=== PATIENT | male | born 1945 | race Caucasian/White ===

== ENCOUNTER 2016-06-30 05:49 | Outpatient (CLI) | payer MEDICARE ==
[~2016-06-30] VITALS: Ht 185.4 cm; Wt 92.7 kg
[~2016-06-30 05:49] MED LIST: ACHD5005 PO; ASP325TEC PO; EPIN0.3P3 IM; HYDR-3456 PO; METH500T7 PO; PRD10T PO; Polyethylene Glycol PO
== END 2016-06-30 10:47 ==
LOC: PREOP 05:49
PROVIDERS: ATTEND Surgery Pediatric Surgery
DX: Z01.818 Encounter for other preprocedural examination (principal); Z12.11 Encounter for screening for malignant neoplasm of colon; Z86.010 Personal history of colon polyps

== ENCOUNTER 2016-07-02 11:00 | Day surgery (SDC) | payer MEDICARE ==
[~2016-07-02] VITALS: Ht 185.4 cm; Wt 92.7 kg
[2016-07-02 11:15] VITALS: BP 141/83
[2016-07-02] MEDS ORDERED: NS IV 500 ML 500 ML IV ONE (11:15)
[2016-07-02] MEDS ORDERED: NALOXONE 0.4 MG/ML 1 ML (NARCAN) VIAL IVP PRN (11:15)
[2016-07-02] MEDS ORDERED: FLUMAZENIL (ROMAZICON) 0.1 MG/ML 5 ML VIAL INJ PRN (11:15)
[2016-07-02] MEDS ORDERED: MIDAZOLAM 2 MG/2 ML (VERSED) VIAL ONE ×4 (11:24)
[2016-07-02] MEDS ORDERED: fentaNYL INJECTION 100 MCG/2 ML AMP ONE ×2 (11:24→11:25)
[2016-07-02] MEDS ORDERED: OMEP20TA33 PO (11:24)
[2016-07-02] MEDS ORDERED: HURRICAINE EXT TUBE (BENZOCAINE) ONE (11:25)
[2016-07-02] MEDS ORDERED: LIDOCAINE JELLY 2% (XYLOCAINE) 5 ML TUBE ONE (11:25)
--- NOTE | 2016-07-02 11:29 | Conscious Sedation/ASA ---
Conscious Sedation Pre-Proced Time Reviewed: 11:15 ASA Class: 2 Airway Mallampati Classification: (hoh appropriate class) I. II. III, IV Lungs Heart ASA score ASA 1: a normal healthy patient ASA 2: a patient with a mild systemic disease (mid diabetes, controlled hypertension, obesity ASA 3: a patient with a severe systemic disease that limits activity (angina , COPD, prior Myocardial infarction) ASA 4: a patient with an incapacitating disease that is a constant threat to life (CHF, renal failure) ASA 5: a moribund patient not expected to survive 24 hrs. (ruptured aneurysm) ASA 6: a declared brain patient whose organs are being harvested. For emergent operations, add the letter E after the classification Grade 2 Sedation Plan: Analgesia, Amnesia, Plan communicated to team members, Discussed options with patient/fam, Discussed risks with patient/fam Note The patient is an appropriate candidate to undergo the planned procedure, sedation, and anesthesia. The patient immediately re-assessed prior to indication. GABE YANES MD Jul 02, 2016 11:29 am
[2016-07-02] MEDS ORDERED: ONDANSETRON 4 MG/2 ML (SDV) Z0FRAN IV PRN (11:30)
[2016-07-02] MEDS ORDERED: HYDROcodone/APAP 5 MG/325 MG (LORTAB) TAB PO PRN (11:30)
[2016-07-02] MEDS ORDERED: ACETAMINOPHEN 325 MG TABLET/CAPLET (TYLENOL) PO PRN (11:30)
[2016-07-02] MEDS ORDERED: morphine INJ 10 MG/ML 1ML (SYR OR VIAL) IV PRN (11:30)
--- NOTE | 2016-07-02 11:30 | Progress Note-Pre Operative ---
Pre-Operative Progress Note H&P Reviewed The H&P was reviewed, patient examined and no changes noted. Date H&P Reviewed: Jul 02, 2016 Time H&P Reviewed: 11:15 Pre-Operative Diagnosis: GERD, hx colon polyp GABE YANES MD Jul 02, 2016 11:29 am
[2016-07-02] MEDS: fentaNYL INJECTION 100 MCG/2 ML AMP IVP PRN ×4 (11:35→12:07)
[2016-07-02] MEDS: MIDAZOLAM 2 MG/2 ML (VERSED) VIAL IVP PRN ×4 (11:37→12:05)
--- NOTE | 2016-07-02 12:31 | Progress Note-Post Operative ---
Post-Operative Progess Note Pre-Operative Diagnosis GERD, hx colon polyp Post-Operative Diagnosis reflux esophagitis(class B), small HH(1.5cm), mild gastritis. chronic stage 2-3 ext and int hemorrhoids, mild sigmoid diverticulosis. Post-Op Procedure Note Date of Procedure: Jul 02, 2016 Name of Procedure: EGD with bx. Colonoscopy. Anesthesia Type CS Estimated blood loss (mL): minimal Specimen(s) collected GE jxn, antrum GABE YANES MD Jul 02, 2016 12:31 pm
[2016-07-02] MEDS ORDERED: PANT40TA2 PO (12:32)
--- NOTE | 2016-07-02 12:33 | Discharge Inst-Surgical ---
D/C Lap Instructions-KIDO New, Converted, or Re-Newed RX: RX on Chart Follow Up PRN Activity as tolerated High Fiber Diet 25g or more per day Avoid Alcohol, Caffeine, Spicy Landa and Acid foods. Drink 64 fluid oz or more of fluids per day. Symptoms to Report: Fever over 101 degree F, Nausea/Vomiting If any problems/questions: Contact your physician or go to Emergency Room GABE YANES MD Jul 02, 2016 12:33 pm
[2016-07-02 12:35] VITALS: BP 114/64
[2016-07-02 13:00] VITALS: BP 110/78
[2016-07-02 13:05] VITALS: BP 110/78
[2016-07-02] MEDS ORDERED: LIDOCAINE JELLY 2% (XYLOCAINE) 5 ML TUBE TOP ONE (14:00)
[2016-07-02] MEDS ORDERED: HURRICAINE EXT TUBE (BENZOCAINE) XX ONE (14:00)
--- NOTE | 2016-07-05 10:37 | PROCEDURE REPORT ---
PROCEDURE PHYSICIAN: GABE ORLANDO DATE OF PROCEDURE: 07/02/2016 ATTENDING PRIMARY CARE PHYSICIAN: Dr. Santana. PREOPERATIVE DIAGNOSIS: 1. Gastroesophageal reflux disease. 2. History of colon polyp. POSTOPERATIVE DIAGNOSES: 1. Reflux esophagitis, class B. 2. Small hiatal hernia, approximately 1.5 cm in size. 3. Moderate gastritis. 4. Chronic between stage II and III external and internal hemorrhoids. 5. Mild sigmoid diverticulosis. PROCEDURE: 1. EGD with biopsy. 2. Colonoscopy. SURGEON: Dr. Orlando. ANESTHESIA: Conscious sedation. ESTIMATED BLOOD LOSS: Minimal. FINDINGS: EGD: 1. Reflux esophagitis, class B. 2. No ulcers or strictures. 3. Small hiatal hernia, approximately 1.5 cm in size. 4. Moderate severity gastritis. 5. The pylorus and duodenum appeared normal. 6. There were no ulcers or polyps identified. COLONOSCOPY: 1. Chronic between stage II and III external and internal hemorrhoids, not actively edematous nor inflamed and no bleeding. 2. Normal sphincter tone was felt and the prostate gland was palpable and appeared normal. 3. There was a mild sigmoid diverticulosis. 4. The remainder of the colon appeared normal. DISPOSITION: The patient tolerated the procedure well. Mr. Burke Longoria is a 71-year-old male who has had issues with gastroesophageal reflux disease. He reports that he has been taking Prilosec [id number]; however, in the past year, this has become significantly worse, especially at night. He does report epigastric burning sensation as well as crampy pain. He also is in need of a follow-up screening colonoscopy for a previous history of colon polyp. His last colonoscopy was approximately 12 years ago. He also underwent Hemoccult test, which was positive. PROCEDURE: The patient was brought to the endoscopy suite, laid in the left lateral decubitus position. After adequate IV pain and sedative medications and conscious sedation anesthesia, the mouthpiece was applied. The endoscope was then placed in the mouth, visualizing the pharynx and hypopharyngeal region. Vocal cords, epiglottis and vallecula identified and appeared to be normal. The endoscope was then gently intubated the esophageal opening and the esophagus insufflated. The endoscope was then advanced through the first, second, and 3rd portions of the esophagus. At the level of the GE junction, a reflux esophagitis, class B identified. There were no ulcerations or strictures identified in this region. A biopsy was taken with forceps with visualization of good hemostasis. The endoscope was then easily advanced into stomach and endoscope retroflexed visualizing a small hiatal hernia, approximately 1.5 cm in size. There was a moderate severity gastritis. There were no formal ulcers, polyps or any neoplasms identified. A biopsy was taken of the stomach antrum with forceps with visualization of good hemostasis. The endoscope was then advanced through the pylorus into the first and second portions of duodenum which appeared normal. The endoscope was then slowly withdrawn while taking a second look and suctioning of residual air with no additional findings. The patient tolerated this portion the procedure well. For his reflux esophagitis, hiatal hernia and gastritis, we will recommend the necessary lifestyle and diet accommodation including smaller, more frequent meals, avoidance of eating at night, as well as head elevation while lying supine. He also needs to avoid caffeinated beverages, spicy, greasy and acidic foods. We will also proceed with a Protonix 40 mg daily. COLONOSCOPY: Under the same conscious sedation anesthesia, we then proceeded with the colonoscopy portion of the procedure. A digital rectal examination was performed, which revealed chronic between stage II and III external and internal hemorrhoids were not actively edematous nor inflamed and no bleeding. Normal sphincter tone was felt and there were no palpable masses. The prostate gland was palpable and appeared normal. The endoscope was then intubated into the anus and the rectum gently insufflated. The endoscope was then advanced through the valves of Lee of the rectum with no polyps or any neoplasms identified. The endoscope was then advanced through the sigmoid colon where a mild sigmoid diverticulosis identified. There were no mucosal inflammatory changes to indicate any active diverticulitis. The endoscope was then advanced through the remainder of the descending, transverse, and ascending colon to the cecum. These segments were normal. There were no polyps or any neoplasms identified throughout the colon or rectum. The endoscope was then slowly withdrawn while taking a second look and suctioning of residual air with no additional findings. The patient tolerated the procedure well. We will have him continue with medical management with a high fiber diet with at least 30 grams of fiber per day, as well as at least 64 fluid ounces of water daily to promote soft stools on a daily basis. He does not need another colonoscopy for another 10 years. Job ID: [id number] Dictated Date: 07/02/2016 12:28:17 Nut Sorter Date: 07/05/2016 10:17:34 / tbben
== END 2016-07-02 13:10 | disposition home or self-care (01) ==
LOC: ENDO 11:00
PROVIDERS: ATTEND Surgery Pediatric Surgery
DX: Z12.11 Encounter for screening for malignant neoplasm of colon (principal); K57.30 Diverticulosis of large intestine without perforation or abscess without bleeding; K64.2 Third degree hemorrhoids; Z86.010 Personal history of colon polyps; K21.0 Gastro-esophageal reflux disease with esophagitis; K44.9 Diaphragmatic hernia without obstruction or gangrene; K29.70 Gastritis, unspecified, without bleeding
CPT/HCPCS: 43239; G0105; 88305; 88342

== ENCOUNTER 2017-06-08 05:35 | Outpatient (CLI) | payer MEDICARE ==
[~2017-06-08] VITALS: Ht 185.4 cm; Wt 92.5 kg
[~2017-06-08 05:35] MED LIST changes: +OMEP20TA33 PO; +PANT40TA2 PO
== END 2017-06-08 15:54 ==
LOC: PREOP 05:35
PROVIDERS: ATTEND Surgery
DX: Z01.818 Encounter for other preprocedural examination (principal); K40.90 Unilateral inguinal hernia, without obstruction or gangrene, not specified as recurrent

== ENCOUNTER → 2017-06-15 | Outpatient (CLI) | payer MEDICARE ==
[~2017-06-15] MED LIST changes: +HYDR-3816 PO; +ONDN4T PO
[2017-06-15 11:34] LABS: HEMOGLOBIN 16.6 G/DL (13.3-17.7); MEAN PLATELET VOLUME 11.1 FL (7.4-10.4); RED BLOOD COUNT 5.37 10^6/uL (4.35-5.85); RED CELL DISTRIBUTION WIDTH 13.6 % (10.0-14.5); WHITE BLOOD COUNT 7.5 10^3/uL (4.3-11.0)
[2017-06-15 12:56] LABS: ALANINE AMINOTRANSFERASE 33 U/L (0-55); ALBUMIN 4.3 GM/DL (3.2-4.5); ALKALINE PHOSPHATASE 100 U/L (40-136); BILIRUBIN,TOTAL 0.6 MG/DL (0.1-1.0); BUN/CREATININE RATIO 14; CALCIUM 9.5 MG/DL (8.5-10.1); CARBON DIOXIDE 25 MMOL/L (21-32); CHLORIDE 108 MMOL/L (98-107); CHOLESTEROL 158 MG/DL (< 200); CREATININE SERUM 0.86 MG/DL (0.60-1.30); GFR ESTIMATED > 60; GLUCOSE 109 MG/DL (70-105); HDL CHOLESTEROL 38 MG/DL (40-60); POTASSIUM 4.5 MMOL/L (3.6-5.0); SODIUM 140 MMOL/L (135-145); TRIGLYCERIDES 182 MG/DL (<150); VLDL CHOLESTEROL 36 MG/DL (5-40)
== END ==
LOC: LAB 11:17
PROVIDERS: ATTEND Surgery
DX: E03.9 Hypothyroidism, unspecified (principal); R53.82 Chronic fatigue, unspecified; R39.16 Straining to void; Z87.19 Personal history of other diseases of the digestive system; Z12.5 Encounter for screening for malignant neoplasm of prostate
CPT/HCPCS: 36415; 80053; 80061; 84153; 84443; 85027

== ENCOUNTER → 2017-06-16 | Day surgery (SDC) | payer MEDICARE ==
[~2017-06-16] VITALS: Ht 185.4 cm; Wt 92.5 kg
[~2017-06-16] MED LIST changes: +ACETAMINOPHEN 325 MG TABLET/CAPLET (TYLENOL) PO PRN; +CATHETER FLUSH 10 ML SYR IV PRN; +DEXAMETHASONE 10 MG/ML (DECADRON) 1 ML VIAL ONE; +ESMOLOL 100 MG/10 ML (BREVIBLOC) VIAL ONE; +HYDROcodone/APAP 5 MG/325 MG (LORTAB) TAB PO ONE; +HYDROcodone/APAP 7.5 MG/325 MG (LORTAB, LORCET PLUS) TABLET PO ONE; +HYDROmorphone (DILAUDID) 2 MG/ML VIAL ONE; +LIDOCAINE PF 2% 5 ML (XYLOCAINE) VIAL ONE; +LIDOCAINE/EPI 1%-1:200,000 (XYLOCAINE) 10 ML VIAL ONE; +ONDANSETRON 4 MG/2 ML (SDV) Z0FRAN IVP PRN; +ONDANSETRON 4 MG/2 ML (SDV) Z0FRAN ONE; +ROCURONIUM 50 MG/5 ML (ZEMURON) VIAL IV ONE; +SEVOFLURANE (ULTANE) 15 ML INHAL SOLN ONE; +ceFAZolin INJECTION 1,000 MG in NS (IVPB) 50 ML IV ONE; +fentaNYL INJECTION 100 MCG/2 ML AMP ONE; +morphine INJ 10 MG/ML 1ML (SYR OR VIAL) IVP PRN; +proPOfol 200 MG/20 ML (DIPRIVAN) VIAL IV ONE
[2017-06-16 08:20] VITALS: BP 132/57
[2017-06-16] MEDS: LACTATED RINGERS 1,000 ML IV PRN ×2 (08:52→10:50)
--- NOTE | 2017-06-16 09:00 | Progress Note-Pre Operative ---
Pre-Operative Progress Note H&P Reviewed The H&P was reviewed, patient examined and no changes noted. Date Seen by Provider: Jun 16, 2017 Time Seen by Provider: 08:50 Date H&P Reviewed: Jun 16, 2017 Time H&P Reviewed: 08:55 Pre-Operative Diagnosis: Symptomatic right inguinal hernia FELIX NAIDU APRN Jun 16, 2017 9:00 am
--- NOTE | 2017-06-16 12:13 | Progress Note-Post Operative ---
Post-Operative Progess Note Surgeon (s)/Messenger Floorperson (s) Surgeon GABE YANES MD Messenger Floorperson: susana meadows [employer] Pre-Operative Diagnosis Symptomatic right inguinal hernia Post-Operative Diagnosis symptomatic right direct ing hernia. Procedure & Operative Findings Date of Procedure 06/16/17 Procedure Performed/Findings laparoscopic right inguinal hernia repair with mesh. Anesthesia Type GET Estimated Blood Loss Estimated blood loss (mL): minimal Specimens/Packing Specimens Removed none GABE YANES MD Jun 16, 2017 12:13 pm
--- NOTE | 2017-06-16 12:17 | Discharge Inst-Surgical ---
D/C Lap Instructions-JOAQUÍN New, Converted, or Re-Newed RX: RX on Chart Follow Up Appt in 2 weeks Activity as tolerated No driving for 24 hours No driving while on pain medications Incentive Spirometry use every 2 hours while awake Regular Diet Symptoms to Report: Fever over 101 degree F, Nausea/Vomiting Infection Signs and Symptoms to report: Increased redness, Foul odor of wound, Increased drainage Bathing instructions: May shower Operative Area Clean/Dry; Keep incision clean/dry If any problems/questions: Contact your physician or go to Emergency Room GABE YANES MD Jun 16, 2017 12:17 pm
[2017-06-16] MEDS: HYDROmorphone (DILAUDID) 2 MG/ML VIAL IVP PRN ×3 (12:20→12:46)
[2017-06-16 13:15] VITALS: BP 116/62
[2017-06-16 13:45] VITALS: BP 108/60
--- NOTE | 2017-06-16 13:52 | OPERATIVE REPORT ---
DATE OF SERVICE: 06/16/2017 ATTENDING PRIMARY CARE PHYSICIAN: Dr. Santana. PREOPERATIVE DIAGNOSIS: Symptomatic reducible right inguinal hernia. POSTOPERATIVE DIAGNOSIS: Symptomatic right direct inguinal hernia. PROCEDURE: Laparoscopic right inguinal hernia repair with mesh. SURGEON: Gabe Yanes MD. EMERGENCY DEPARTMENT: Wu Earl APRN. ANESTHESIA: General endotracheal. ESTIMATED BLOOD LOSS: Minimal. FINDINGS: Small right direct inguinal hernia, nothing within the hernia sac. There was no left inguinal hernia component. DISPOSITION: The patient tolerated the procedure well. INDICATIONS: The patient is a 72-year-old male who we have seen before in the past. He reports that he developed pain and swelling in the right inguinal region several months ago; however, he dealt with this. He reports over time he has noticed that the bulge has grown larger in size and become painful. Upon examination, he was found to have a right inguinal hernia, which was reducible; however, tender to palpation. He is otherwise doing well, tolerating a regular diet and having normal bowel movements. DESCRIPTION OF PROCEDURE: The patient was brought to the operating room, laid supine on the table. After adequate IV pain and sedative medications and conscious sedation and general endotracheal intubation, the abdomen was prepped and draped in standard surgical fashion. A 0.5% Marcaine with epinephrine was then used to anesthetize the infraumbilical rim and a small transverse skin incision made using a 15 blade. The abdominal wall was retracted anteriorly using a sharp towel clamp and a Veress needle inserted with a low opening pressure of 0 mmHg and the abdomen was insufflated to 15 mmHg pressure. The Veress needle removed and a 10 mm port was placed followed by a 10 mm 45-degree angle laparoscope visualizing the peritoneal cavity. The patient was then placed in reverse Trendelenburg position. A 4-quadrant abdominal exploration was performed. Right indirect inguinal hernia was identified with nothing within the hernia sac. There was no left inguinal hernia component. What was visualized of the omentum, small bowel, colon, liver appeared normal. We then proceeded to place bilateral 5 mm ports under direct visualization after the skin and peritoneal lining were anesthetized and a skin incision made using a 15 blade. The peritoneal lining was then first opened laterally using a Sonicision towards the conjoint tendon and inguinal ligament. We then proceeded medially to the Rene's ligament. We then proceeded with inferior dissection encompassing the entire hernia sac. The cord and its contents were identified and spared throughout the process. A cord lipoma was identified as well, which was dissected out as well using blunt dissection as well as Sonicision. Good hemostasis was observed. A medium sized 3D Max polypropylene mesh was then placed through the 10 mm port site and tacked to Rene's ligament medially and conjoint tendon laterally. The peritoneal lining was then placed completely over the mesh and a few tacks placed to hold them in place with visualization of good hemostasis. The 10 mm port site fascia and peritoneum were then closed under direct visualization using a John-Adri device and an 0 Vicryl suture. Abdomen was desufflated and remaining ports removed. All skin incisions were closed using 4-0 Monocryl running subcuticular sutures. Wounds were then cleaned and covered with Dermabond. The patient tolerated the procedure well. We will start IV and oral pain medication as well as a clear liquid diet. Once he is tolerating clears and has good pain control with oral pain medications and ambulating well, we will discharge him home. He is instructed to do no heavy lifting or exertion for the next 2 weeks definitely and then he may increase activity as tolerated; however, not proceed with heavy lifting until 6 weeks from the surgery date. Job ID: [id number] DocumentID: [id number] Dictated Date: 06/16/2017 12:23:40 Reviewer Sales Date: 06/16/2017 13:52:01 Dictated By: GABE YANES MD
[2017-06-16 14:15] VITALS: BP 136/64
== END | disposition home or self-care (01) ==
LOC: SDC 07:57
PROVIDERS: ATTEND Surgery
DX: K40.90 Unilateral inguinal hernia, without obstruction or gangrene, not specified as recurrent (principal); K21.9 Gastro-esophageal reflux disease without esophagitis; Z87.891 Personal history of nicotine dependence
CPT/HCPCS: 87081; 94664

== ENCOUNTER → 2023-01-05 | Outpatient (CLI) | payer MEDICARE ==
[~2023-01-05] MED LIST changes: -ACETAMINOPHEN 325 MG TABLET/CAPLET (TYLENOL) PO PRN; -CATHETER FLUSH 10 ML SYR IV PRN; -DEXAMETHASONE 10 MG/ML (DECADRON) 1 ML VIAL ONE; -ESMOLOL 100 MG/10 ML (BREVIBLOC) VIAL ONE; +HYDR-34 PO; -HYDR-3816 PO; -HYDROcodone/APAP 5 MG/325 MG (LORTAB) TAB PO ONE; -HYDROcodone/APAP 7.5 MG/325 MG (LORTAB, LORCET PLUS) TABLET PO ONE; -HYDROmorphone (DILAUDID) 2 MG/ML VIAL ONE; -LIDOCAINE PF 2% 5 ML (XYLOCAINE) VIAL ONE; -LIDOCAINE/EPI 1%-1:200,000 (XYLOCAINE) 10 ML VIAL ONE; -ONDANSETRON 4 MG/2 ML (SDV) Z0FRAN IVP PRN; -ONDANSETRON 4 MG/2 ML (SDV) Z0FRAN ONE; -ROCURONIUM 50 MG/5 ML (ZEMURON) VIAL IV ONE; -SEVOFLURANE (ULTANE) 15 ML INHAL SOLN ONE; -ceFAZolin INJECTION 1,000 MG in NS (IVPB) 50 ML IV ONE; -fentaNYL INJECTION 100 MCG/2 ML AMP ONE; -morphine INJ 10 MG/ML 1ML (SYR OR VIAL) IVP PRN; -proPOfol 200 MG/20 ML (DIPRIVAN) VIAL IV ONE
[2023-01-05 14:44] VITALS: BP 133/75
== END ==
LOC: CARD 14:26
PROVIDERS: ATTEND Internal Medicine Cardiovascular Disease
DX: R00.2 Palpitations (principal)
CPT/HCPCS: 93017